=== PATIENT | female | born 1935 | race Caucasian/White ===

== ENCOUNTER 2024-08-07 15:55 | Outpatient (CLI) | payer MEDICARE, BC ==
[2024-08-07 16:53] LABS: #Basophils 0.07 10x3/uL (0.0-0.2); %Basophils 0.7 % (0.0-1.0); %Eosinophils 0.9 % (0.0-10.0); %Lymphocytes 12.3 % (21.0-51.0); %Monocytes 10.9 % (0.0-10.0); %Neutrophils 74.8 % (42.0-75.0); Hematocrit 41.6 % (36.0-47.0); Hemoglobin 14.1 g/dL (12.0-16.0); Mean Corpuscular HGB CONC 33.9 g/dL (32.0-36.0); Mean Corpuscular Hemoglobin 30.7 pg (27.0-31.0); Mean Corpuscular Volume 90.4 fL (78.0-98.0); Mean Platelet Volume 9.1 fL (7.4-10.4); Platelet Count 339 10x3/uL (130-400); RBC Distribution Width 13.6 % (11.5-14.5)
[2024-08-07 17:09] LABS: ALT (SGPT) 12 U/L (8-55); AST (SGOT) 16 U/L (5-34); Albumin 3.7 g/dL (3.4-4.8); Alkaline Phosphatase 85 U/L (40-110); Anion Gap 12 mmol/L (10-20); BUN (Urea Nitrogen) 13 mg/dL (9.8-20.1); Bilirubin, Total 0.4 mg/dL (0.2-1.2); Calc. Creatinine Clearance 0 mL/min (70-130); Calcium 9.1 mg/dL (7.8-10.44); Carbon Dioxide 26 mmol/L (23-31); Chloride 107 mmol/L (98-107); Estimated GFR 86; Globulin 3.4 g/dL (2.4-3.5); Glucose 118 mg/dL (83-110); Potassium 4.3 mmol/L (3.5-5.1); Protein, Total 7.1 g/dL (5.8-8.1); Sodium 141 mmol/L (136-145)
== END 2024-08-07 15:56 | disposition home or self-care (01) ==
LOC: LABBT 15:55
PROVIDERS: ATTEND Surgery
DX: Z01.818 Encounter for other preprocedural examination (principal); R59.0 Localized enlarged lymph nodes; I51.7 Cardiomegaly
CPT/HCPCS: 71046; 80053; 85025; 93005; 93010

== ENCOUNTER 2024-08-10 06:50 | Day surgery (SDC) | payer MEDICARE, BC ==
[2024-08-07 16:21] VITALS: BMI 19.6
[2024-08-10] MEDS ORDERED: EPINEPHrine 1 MG/ML VIAL ONE (07:48)
[2024-08-10] MEDS ORDERED: Bupivacaine 0.25% HCL 30 ML VIAL ONE (07:48)
[2024-08-10] MEDS ORDERED: Lidocaine 2% PF 5 ML VIAL ONE ×2 (07:48→08:58)
[2024-08-10] MEDS ORDERED: Etomidate 40 MG (20 mL) VIAL ONE (08:53)
[2024-08-10] MEDS ORDERED: Ketamine In 0.9 % NaCl 50 MG/5 ML SYRINGE ONE (08:53)
[2024-08-10] MEDS ORDERED: CEFAZOLIN 2 GM VIAL ONE (08:54)
[2024-08-10] MEDS ORDERED: fentaNYL 50 mcg/mL 1 mL Vial ONE ×2 (09:06→09:24)
[2024-08-10] MEDS ORDERED: Midazolam HCl 2 mg/2 ml Vial ONE (09:07)
[2024-08-10] MEDS ORDERED: Acetaminophen 500 MG TAB ONE (11:09)
== END 2024-08-10 12:20 | disposition home or self-care (01) ==
LOC: SDC 06:50
PROVIDERS: ATTEND Surgery
PROC: 07B50ZX Excision of Right Axillary Lymphatic, Open Approach, Diagnostic (ICD-10-PCS; principal; 2024-08-10)
DX: R59.0 Localized enlarged lymph nodes (principal); C81.94 Hodgkin lymphoma, unspecified, lymph nodes of axilla and upper limb; E78.5 Hyperlipidemia, unspecified; H91.93 Unspecified hearing loss, bilateral; F17.200 Nicotine dependence, unspecified, uncomplicated; Z98.890 Other specified postprocedural states; Z90.89 Acquired absence of other organs; Z88.6 Allergy status to analgesic agent; Z88.5 Allergy status to narcotic agent; Z90.49 Acquired absence of other specified parts of digestive tract; Z79.899 Other long term (current) drug therapy
CPT/HCPCS: 38525; 88325; J0171; J0665; J2250; J3010; 88184; 88185; 88189; 88307; 88341; 88342; 88360; 88365; J3490

== ENCOUNTER 2024-08-23 08:45 | Outpatient (CLI) | payer MEDICARE, BC | END 2024-08-23 08:46 | disposition home or self-care (01) | LOC: PET 08:45 | PROVIDERS: ATTEND Internal Medicine Hematology & Oncology | DX: C84.40 Peripheral T-cell lymphoma, not elsewhere classified, unspecified site (principal); E88.9 Metabolic disorder, unspecified | CPT/HCPCS: 78815; A9552 ==